=== PATIENT | female | born 1960 | race Hispanic/Latino ===

== ENCOUNTER 2017-04-27 13:46 | Emergency (ER) | payer MEDICARE, OTHER ==
[2017-04-27 14:58] VITALS: RESP 20; TEMP 98.4; O2SAT 98
--- NOTE | 2017-04-27 16:04 | C.PDOC ---
History Of Present Illness Pt is s/p ORIF of right ankle. Pt is here today because her leg splint is dirty and is requesting it be replaced. Time Seen by Provider: 04/27/17 15:39 Chief Complaint (Nursing): Lower Extremity Problem/Injury History Per: Patient, Family (Mother) History/Exam Limitations: other (psych/MR) Onset/Duration Of Symptoms: Days Current Symptoms Are (Timing): Still Present Severity: Moderate Additional History Per: Prior Records Past Medical History Reviewed: Historical Data, Nursing Documentation, Vital Signs Vital Signs: Last Vital Signs Temp 98.4 F 04/27/17 14:54 Pulse 117 H 04/27/17 14:54 Resp 20 04/27/17 14:54 BP 154/94 H 04/27/17 14:54 Pulse Ox 98 04/27/17 14:54 - Medical History PMH: Bipolar Disorder, HTN, Schizophrenia Other Surgeries: ORIF of right ankle - [facility] Procedures INSERTION OF INT FIX INTO R TIBIA, OPEN APPROACH (03/12/17) VACCINATION NEC (03/23/15) Family History: States: Unknown Family Hx - Social History Hx Tobacco Use: Yes Hx Alcohol Use: No Hx Substance Use: No - Immunization History Hx Tetanus Toxoid Vaccination: Yes Hx Influenza Vaccination: Yes Hx Pneumococcal Vaccination: Yes Review Of Systems Except As Marked, All Systems Reviewed And Found Negative. Constitutional: Negative for: Fever, Weakness Cardiovascular: Negative for: Chest Pain Respiratory: Negative for: Shortness of Breath Gastrointestinal: Negative for: Vomiting, Abdominal Pain Musculoskeletal: Negative for: Neck Pain, Back Pain, Leg Pain, Foot Pain Skin: Negative for: Rash Neurological: Negative for: Weakness, Numbness, Seizures, Altered Mental Status Physical Exam - Physical Exam Appears: Non-toxic, No Acute Distress Skin: Normal Color, Warm, Dry Head: Atraumatic, Normacephalic Neck: Normal ROM, Supple Extremity: Normal ROM, Capillary Refill (wnl), Other (Posterior splint on right leg. Dressing appears dirty. ) Pulses: Left Dorsalis Pedis: Normal, Right Dorsalis Pedis: Normal Neurological/Psych: Oriented x3, Normal Motor, Normal Sensation ED Course And Treatment O2 Sat by Pulse Oximetry: 98 Pulse Ox Interpretation: Normal Progress Note: Splint bandages were changed by me. Surgical wounds appear dry with mayra in place and no signs of infection. Reassessment Condition: Improved Disposition Counseled Patient/Family Regarding: Diagnosis, Need For Followup - Disposition Referrals: Dangelo Barton III, MD [Staff Provider] - Disposition: HOME/ ROUTINE Disposition Time: 16:06 Condition: STABLE Additional Instructions: Follow up with your doctor. Return to the ER if you develop severe pain, fever, redness, weakness, numbness, worsening of symptoms or if you have any other concerns. Instructions: Splint Care (ED) - Clinical Impression Clinical Impression: Aftercare for cast or splint check or change
[2017-04-27 16:15] VITALS: BP 135/72; PULSE 92
== END 2017-04-27 16:17 | disposition home or self-care (01) ==
LOC: C.ER 13:46
DX: Z47.89 Encounter for other orthopedic aftercare (principal)

== ENCOUNTER 2017-05-27 22:20 | Emergency (ER) | payer MEDICARE, OTHER ==
[2017-05-27 22:36] VITALS: RESP 18; TEMP 97.8
--- NOTE | 2017-05-27 22:48 | C.PDOC ---
History Of Present Illness pt with cough for about a week. occasionally. productive. speaking in complete sentences. tolerating po Time Seen by Provider: 05/27/17 22:47 Chief Complaint (Nursing): Cough, Cold, Congestion History Per: Patient History/Exam Limitations: no limitations Onset/Duration Of Symptoms: Days Current Symptoms Are (Timing): Still Present Location Of Pain: Throat Sick Contacts (Context): None Associated Symptoms: Sore Throat, Nasal Congestion. denies: Fever, Chills Ear Symptoms: Bilateral: None Pain Scale Rating Of: 2 Recent travel outside of the [place]: No Additional History Per: Patient Past Medical History Reviewed: Historical Data, Nursing Documentation, Vital Signs Vital Signs: Last Vital Signs Temp 97.8 F 05/27/17 22:32 Pulse 96 H 05/27/17 22:32 Resp 18 05/27/17 22:32 BP 116/79 05/27/17 22:32 Pulse Ox 97 05/27/17 22:48 - Medical History PMH: Bipolar Disorder, HTN, Schizophrenia Denies: HIV, Chronic Kidney Disease, Seizures, Sexually Transmitted Disease - [facility] Procedures INSERTION OF INT FIX INTO R TIBIA, OPEN APPROACH (03/12/17) VACCINATION NEC (03/23/15) Family History: States: No Known Family Hx - Social History Hx Tobacco Use: Yes Hx Alcohol Use: No Hx Substance Use: No - Immunization History Hx Tetanus Toxoid Vaccination: Yes Hx Influenza Vaccination: Yes Hx Pneumococcal Vaccination: Yes Review Of Systems Constitutional: Negative for: Fever, Chills ENT: Positive for: Nose Congestion, Throat Pain. Negative for: Throat Swelling Cardiovascular: Negative for: Chest Pain Respiratory: Negative for: Shortness of Breath, Wheezing Gastrointestinal: Negative for: Nausea, Vomiting Genitourinary: Negative for: Dysuria Musculoskeletal: Negative for: Back Pain Skin: Negative for: Rash Neurological: Negative for: Weakness Psych: Positive for: Anxiety Physical Exam - Physical Exam Appears: Non-toxic, No Acute Distress Skin: Warm, Dry Eye(s): bilateral: Normal Inspection Ear(s): Bilateral: Normal Nose: Normal Oral Mucosa: Moist Tongue: Normal Appearing Throat: Erythema, No Exudate, No Drooling, No Mass Neck: Trachea Midline, Supple Chest: Symmetrical Cardiovascular: Rhythm Regular Respiratory: No Rales, No Rhonchi, No Wheezing ED Course And Treatment O2 Sat by Pulse Oximetry: 97 Disposition Counseled Patient/Family Regarding: Studies Performed, Diagnosis, Need For Followup, Rx Given - Disposition Referrals: [facility] [Outside] [facility] [Outside] Disposition: HOME/ ROUTINE Disposition Time: 22:48 Condition: FAIR Prescriptions: Albuterol HFA [Ventolin HFA 90 mcg/actuation (8 g)] 2 puff IH [id number] #1 puff Azithromycin [Zithromax Tri-Hector] 500 mg PO DAILY #3 tablet Instructions: Upper Respiratory Infection (ED) - Clinical Impression Clinical Impression: Upper respiratory infection
[2017-05-27 23:26] VITALS: BP 132/81; PULSE 81; O2SAT 98
== END 2017-05-27 23:26 | disposition home or self-care (01) ==
LOC: C.ER 22:20
DX: J06.9 Acute upper respiratory infection, unspecified (principal)

== ENCOUNTER 2018-05-20 07:24 | Emergency (ER) | payer MEDICARE, OTHER ==
[2018-05-20 08:15] VITALS: RESP 18; O2SAT 97
--- NOTE | 2018-05-20 08:28 | C.PDOC ---
History Of Present Illness 58 yo female w/PMHx of schizophrenia come in accompanied by mother for evaluation of Left knee pain gradually developed for past 2 weeks after sustained mechanical fall. As per pt, " feel down in day care on my knee". As per mom, c/o pain over Left knee, localized, worse with ambulation, noted left lower leg swelling and bruising now. Otherwise, pt denies head injury, LOC, headache, neck pain, denies obvious deformity to Left leg and knee, denies weakness, sensory or vascular deficits to Left leg. Ambulate to ED for evaluation, not in any apparent distress. Time Seen by Provider: 05/20/18 07:30 Chief Complaint (Nursing): Lower Extremity Problem/Injury History Per: Patient, Family Past Medical History Reviewed: Historical Data, Nursing Documentation, Vital Signs Vital Signs: Last Vital Signs Temp 98.0 F 05/20/18 07:38 Pulse 100 H 05/20/18 07:38 Resp 18 05/20/18 07:38 BP 151/84 H 05/20/18 07:38 Pulse Ox 97 05/20/18 08:40 - Medical History PMH: Bipolar Disorder, HTN, Schizophrenia Denies: HIV, Chronic Kidney Disease, Seizures, Sexually Transmitted Disease - [facility] Procedures INSERTION OF INT FIX INTO R TIBIA, OPEN APPROACH (03/12/17) VACCINATION NEC (03/23/15) Family History: States: Unknown Family Hx - Social History Hx Tobacco Use: Yes Hx Alcohol Use: No Hx Substance Use: No - Immunization History Hx Tetanus Toxoid Vaccination: Yes Hx Influenza Vaccination: Yes Hx Pneumococcal Vaccination: Yes Review Of Systems Except As Marked, All Systems Reviewed And Found Negative. Eyes: Negative for: Vision Change ENT: Negative for: Ear Discharge, Nose Discharge Cardiovascular: Negative for: Chest Pain Gastrointestinal: Negative for: Nausea, Vomiting Genitourinary: Negative for: Incontinence Musculoskeletal: Positive for: Leg Pain, Other (Left knee pain). Negative for: Neck Pain, Back Pain Skin: Positive for: Bruising Neurological: Negative for: Weakness, Numbness, Altered Mental Status, Headache , Dizziness Physical Exam - Physical Exam Appears: Well, Non-toxic, No Acute Distress Skin: Normal Color, Warm, Dry Head: Atraumatic, Normacephalic Eye(s): bilateral: PERRL Nose: No Deformity, No Tenderness Oral Mucosa: Moist Throat: No Drooling Neck: Normal ROM, Trachea Midline, No Midline Cervical Tenderness, No Paracervical Tenderness, No Step Off Deformity, Supple Chest: Symmetrical, No Deformity, No Tenderness Back: No Vertebral Tenderness, No Paraspinal Tenderness Extremity: Normal ROM (FAROM of Left knee), Tenderness (diffuse over anterior aspect Left knee), Calf Tenderness (mild Left caf edema without tenderness), No Deformity, Swelling (diffuse left lower leg edema with trace ecchymoses posterior aspect left leg/calf) Neurological/Psych: Oriented x3, Normal Speech, Normal Motor, Normal Sensation, Normal Reflexes ED Course And Treatment O2 Sat by Pulse Oximetry: 97 Pulse Ox Interpretation: Normal - Other Rad Left knee X-Ray: Interpreted by Me, Viewed By Me Interpretation: (+) comminuted pattelar fx Left tib/fib X-Ray: Interpreted by Me, Viewed By Me Interpretation: (-) acute fx - CT Scan/US DOPPLER US LLE Other Rad Studies (CT/US): Read By Radiologist CT/US Interpretation: (-) EVIDENCE OF DVD LLE Progress Note: On re-eval, pt is afebrile, hemodynamicalys table. Non-toxic. AMbulatory in ED. LLE: tenderness over anteiror aspect Left knee with diffuse edema from knee down to lower leg, trace ecchymoses calf area. FAROM, no ndeformity, no neurovasculard eficist distally. Imaging review (+) comminuted pattela fx. Doppler US LLE (-) DVT. Knee immobilizer applied to left knee, crutches provided. Pt advised and ref. to /[facility] in 2 -3 days for re- eavl. return if any new changes. Orthopedic Time Performed: 08:39 Time Out: Side verified, Site verified, Patient ID confirmed Procedure: Immobilizer Other:: Knee Location: Left Other:: Knee Consent obtained: Verbal Performed by: Mid-level Provider Diagnosis: Fracture Type: Closed, Comminuted Location: Left Bone: Patella Disposition Counseled Patient/Family Regarding: Studies Performed, Diagnosis, Need For Followup, Rx Given - Disposition Referrals: Mayte Looney MD [Staff Provider] - Disposition: HOME/ ROUTINE Disposition Time: 08:38 Condition: STABLE Additional Instructions: KNEE IMMOBILIZER AND CRUTCHES FOR 2-3 WEEKS AVOID PROLONG WALKING FOR 2-3 WEEKS TAKE TYLENOL, TRAMADOL FOR PAIN NEED FOLLOW UP WITH ORTHOPEDIST IN2 -3 DAYS FOR RE-EVALUATION. RETURN TO ED IF ANY WORSENING OR NEW CHANGES. Prescriptions: traMADol [Ultram] 50 mg PO TID #7 tab Instructions: Patella Fracture Forms: [facility] ([employer]), School Excuse - Clinical Impression Clinical Impression: Patellar fracture
[2018-05-20 09:52] VITALS: BP 133/85; PULSE 85; TEMP 97.8
--- NOTE | 2018-05-20 09:59 | RAD ---
PROCEDURE: Left Knee Radiographs. HISTORY: Pain. COMPARISON: None. FINDINGS: BONES: There is a comminuted fracture of the patella with overlying soft tissue swelling and thickening of the patellar tendon. There also appears to be JOINTS: Joint spaces relatively preserved. No significant osteoarthritis however there is slight spurring of the medial tibial spine JOINT EFFUSION: Small suprapatellar joint effusion. OTHER FINDINGS: None. IMPRESSION: Comminuted fracture of the patella with thickening of the patellar tendon and small suprapatellar joint effusion. .
--- NOTE | 2018-05-20 10:01 | RAD ---
PROCEDURE: Radiographs of the left tibia and fibula. HISTORY: injury COMPARISON: Correlation made with concurrent radiographs left knee TECHNIQUE: Frontal and lateral views obtained. FINDINGS: BONES: Re- demonstrated is a comminuted fracture of the patella with thickening of the patellar tendon. Remaining osseous structures appear intact. JOINT SPACES: Remaining joint spaces preserved. OTHER FINDINGS: Mild infiltration changes within the subcutaneous tissues surrounding the left tibia fibula. IMPRESSION: Comminuted fracture of the patella. . No other fractures.
--- NOTE | 2018-05-21 17:22 | VASCLAB ---
PROCEDURE: Left Lower Extremity Venous Duplex Exam. HISTORY: Left lower leg pain, swelling PRIORS: None. TECHNIQUE: Left common femoral, femoral, popliteal and posterior tibial, peroneal and great saphenous veins were evaluated. Flow was assessed with color Doppler, compressibility, assessment of phasic flow and augmentation response. Report prepared by AUBREY Dumont FINDINGS: LEFT: 1. Common Femoral Vein: 1.1. Compressibility - Fully compressible: Thrombus - None : Flow - Phasic: Augmentation -Normal: Reflux - None. 2. Femoral Vein: 2.1. Compressibility - Fully compressible: Thrombus - None: Flow - Phasic: Augmentation -Normal: Reflux - None. 3. Popliteal Vein: 3.1. Compressibility - Fully compressible: Thrombus - None: Flow - Phasic: Augmentation -Normal: Reflux - None. 4. Posterior Tibial Vein: 4.1. Compressibility - Fully compressible: Thrombus - None: Flow - Phasic: Augmentation -Normal: Reflux - None. 5. Peroneal Vein: 5.1. Compressibility - Fully compressible: Thrombus - None: Flow - Phasic: Augmentation -Normal: Reflux - None. 6. Great Saphenous Vein: 6.1. Compressibility - Fully compressible: Thrombus - None: Flow - Phasic: Augmentation - Normal: Reflux - None. OTHER FINDINGS: IMPRESSION: No evidence of deep or superficial vein thrombosis of the left lower extremity with excellent venous flow. Normal valve function noted of the left side. Normal venous flow noted in the right common femoral vein.
== END 2018-05-20 10:18 | disposition home or self-care (01) ==
LOC: C.ER 07:24
DX: S82.042A Displaced comminuted fracture of left patella, initial encounter for closed fracture (principal); W19.XXXA Unspecified fall, initial encounter

== ENCOUNTER 2018-11-22 08:46 | Outpatient (CLI) | payer MEDICARE, OTHER | END 2018-11-22 08:47 | disposition home or self-care (01) | LOC: C.LAB 08:46 | DX: F25.9 Schizoaffective disorder, unspecified (principal) ==

== ENCOUNTER 2018-12-11 08:58 | Outpatient (CLI) | payer MEDICARE, OTHER | END 2018-12-11 08:59 | disposition home or self-care (01) | LOC: C.LAB 08:58 | DX: F25.9 Schizoaffective disorder, unspecified (principal) ==

== ENCOUNTER 2018-12-25 10:12 | Outpatient (CLI) | payer MEDICARE, OTHER | END 2018-12-25 10:13 | disposition home or self-care (01) | LOC: C.LAB 10:12 | DX: F25.9 Schizoaffective disorder, unspecified (principal) ==

== ENCOUNTER 2019-01-15 09:24 | Outpatient (CLI) | payer MEDICARE, OTHER | END 2019-01-15 09:25 | disposition home or self-care (01) | LOC: C.LAB 09:24 | DX: F25.9 Schizoaffective disorder, unspecified (principal) ==

== ENCOUNTER 2019-01-31 09:33 | Outpatient (CLI) | payer MEDICARE, OTHER | END 2019-01-31 09:34 | disposition home or self-care (01) | LOC: C.LAB 09:33 | DX: F25.9 Schizoaffective disorder, unspecified (principal) ==

== ENCOUNTER 2019-02-05 10:18 | Outpatient (CLI) | payer MEDICARE, OTHER | END 2019-02-05 10:19 | disposition home or self-care (01) | LOC: C.LAB 10:18 | DX: F25.9 Schizoaffective disorder, unspecified (principal) ==

== ENCOUNTER 2019-02-19 08:36 | Outpatient (CLI) | payer MEDICARE, OTHER | END 2019-02-19 08:37 | disposition home or self-care (01) | LOC: C.LAB 08:36 | DX: F25.9 Schizoaffective disorder, unspecified (principal) ==

== ENCOUNTER 2019-03-05 09:38 | Outpatient (CLI) | payer MEDICARE, OTHER | END 2019-03-05 09:39 | disposition home or self-care (01) | LOC: C.LAB 09:38 | DX: F25.9 Schizoaffective disorder, unspecified (principal) ==

== ENCOUNTER 2019-04-09 08:31 | Outpatient (CLI) | payer MEDICARE, OTHER | END 2019-04-09 08:32 | disposition home or self-care (01) | LOC: C.LAB 08:31 | DX: F25.9 Schizoaffective disorder, unspecified (principal) ==